=== PATIENT | female | born 1990 | race Caucasian/White ===

== ENCOUNTER 2020-07-15 11:42 | Emergency (ER) | payer MEDICAID ==
[~2020-07-15] VITALS: Ht 170.2 cm; Wt 86.4 kg
[2020-07-15 11:43] VITALS: TEMP 98.3
[2020-07-15] MEDS ORDERED: PREDNISONE20 MG PO (14:10)
[2020-07-15 14:16] VITALS: BP 133/97; PULSE 89
== END 2020-07-15 14:20 | disposition home or self-care (01) ==
LOC: COL.ER 11:42
DX: R06.2 Wheezing (principal); Z20.828 Contact with and (suspected) exposure to other viral communicable diseases; Z90.49 Acquired absence of other specified parts of digestive tract
CPT/HCPCS: J7512

== ENCOUNTER 2020-08-13 23:04 | Emergency (ER) | payer MEDICAID ==
[~2020-08-13] VITALS: Ht 170.2 cm; Wt 86.4 kg
[~2020-08-13 23:04] MED LIST: PREDNISONE20 MG PO
[2020-08-13 23:05] VITALS: TEMP 97.8
[2020-08-14] MEDS ORDERED: CEPHALEXIN500 M1 PO (01:17)
[2020-08-14] MEDS ORDERED: NORCO 325 MG-51 TAB PO (01:17)
[2020-08-14 02:30] VITALS: BP 120/65; PULSE 80
== END 2020-08-14 02:30 | disposition home or self-care (01) ==
LOC: COL.ER 23:04
DX: S61.512A Laceration without foreign body of left wrist, initial encounter (principal); S66.922A Laceration of unspecified muscle, fascia and tendon at wrist and hand level, left hand, initial encounter; J45.909 Unspecified asthma, uncomplicated; Z79.52 Long term (current) use of systemic steroids; W22.8XXA Striking against or struck by other objects, initial encounter; Y92.009 Unspecified place in unspecified non-institutional (private) residence as the place of occurrence of the external cause
CPT/HCPCS: J0690